=== PATIENT | male | born 1965 | race Two or more races ===

== ENCOUNTER 2017-08-06 11:58 | Outpatient (CLI) | payer OTHER | END 2017-08-06 16:03 | disposition home or self-care (01) | LOC: SONOGRAMA 11:58 | DX: M25.561 Pain in right knee (principal) ==

== ENCOUNTER 2017-08-13 06:36 | Day surgery (SDC) | payer OTHER ==
[2017-08-13] MEDS ORDERED: PERCOCET 5-3251 EACH PO (13:57)
[2017-08-13] MEDS ORDERED: NABUMETONE500 MG PO (13:58)
== END 2017-08-13 16:50 | disposition home or self-care (01) ==
LOC: CIR.AMB 06:36
DX: S76.111A Strain of right quadriceps muscle, fascia and tendon, initial encounter (principal)